=== PATIENT | female | born 1960 | race Caucasian/White ===

== ENCOUNTER 2016-06-20 14:42 | Emergency (ER) | payer MEDICAID ==
[2016-06-20 15:18] VITALS: BP 149/87; PULSE 92; RESP 20; TEMP 98; O2SAT 97
--- NOTE | 2016-06-20 15:40 | C.PDOC ---
History Of Present Illness Patient has a history of vertigo for the past 25 years. she is on Meclizine daily but for the past several days the symptoms are worse. She has a transient right sided headache this morning, now resolved. She denies associated visual disturbance or weakness in her arms or legs. She is nauseated and feels unable to eat. The dizziness is only present with movement of her head. Time Seen by Provider: 06/20/16 15:22 Chief Complaint (Nursing): Dizziness/Lightheaded History Per: Patient History/Exam Limitations: no limitations Onset/Duration Of Symptoms: Worse Since (2 days ago) Current Symptoms Are (Timing): Still Present Activity At Onset Of Symptoms: Change In Head Position Possible Causative Factor(s): Vertigo Fall Associated With With Symptoms: No Past Medical History Vital Signs: Last Vital Signs Temp 98.0 F 06/20/16 15:14 Pulse 92 H 06/20/16 15:14 Resp 20 06/20/16 15:14 BP 149/87 06/20/16 15:14 Pulse Ox 97 06/20/16 15:14 - Medical History PMH: Asthma, Chronic Kidney Disease Other PMH: Vertigo Surgical History: No Surg Hx Family History: States: Unknown Family Hx - Social History Hx Tobacco Use: No Hx Alcohol Use: No Hx Substance Use: No - Immunization History Hx Tetanus Toxoid Vaccination: Yes Hx Influenza Vaccination: No Hx Pneumococcal Vaccination: No Review Of Systems Except As Marked, All Systems Reviewed And Found Negative. Eyes: Negative for: Vision Change Neurological: Positive for: Headache, Dizziness Physical Exam - Physical Exam Appears: Well, No Acute Distress Skin: Normal Color, Warm, Dry Head: Atraumatic, Normacephalic Eye(s): bilateral: Normal Inspection, PERRL, EOMI Ear(s): Bilateral: Normal Oral Mucosa: Moist Neck: Normal ROM Lymphatic: No Adenopathy Chest: Symmetrical Cardiovascular: Rhythm Regular Respiratory: Normal Breath Sounds Gastrointestinal/Abdominal: Soft, No Tenderness Pulses: Left Carotid: Normal, Right Carotid: Normal Neurological/Psych: Oriented x3, Normal Speech, Normal Cognition, Normal Cranial Nerves, Normal Motor, Normal Sensation Gait: Steady ED Course And Treatment O2 Sat by Pulse Oximetry: 97 Pulse Ox Interpretation: Normal Progress Note: Patient treated with Zofran 4mg ODT in the ED. She states that she has had multiple ED visits for same symptoms and has had multiple CT scans in the past. She is very familiar with her illness and is requesting only medication for nausea at this time. She will return if symptoms change or worsen. Disposition Counseled Patient/Family Regarding: Diagnosis, Need For Followup, Rx Given - Disposition Referrals: Farheen Paul MD [Non-Staff] - Disposition: HOME/ ROUTINE Disposition Time: 15:42 Condition: STABLE Prescriptions: Ondansetron ODT [Zofran ODT] 1 odt PO QID PRN #20 odt PRN Reason: Nausea/Vomiting Instructions: Vertigo (ED) - Clinical Impression Clinical Impression: Vertigo
== END 2016-06-20 15:54 | disposition home or self-care (01) ==
LOC: C.ER 14:42
DX: R42 Dizziness and giddiness (principal)

== ENCOUNTER 2016-07-11 13:35 | Emergency (ER) | payer MEDICAID ==
[2016-07-11] MEDS ORDERED: Sodium Chloride 0.9% 1,000 ML IV ONE (14:08)
[2016-07-11] MEDS ORDERED: Sodium Chloride 0.9% 1,000 ML ONE (14:24)
[2016-07-11 14:54] LABS: RBC URINE 16 /hpf (0-3); URINE BACTERIA RARE (<OCC); URINE BILIRUBIN NEGATIVE (NEGATIVE); URINE BLOOD 2+ (NEGATIVE); URINE COLOR Straw (YELLOW); URINE GLUCOSE (UA) NORMAL (Normal); URINE KETONE NEGATIVE (NEGATIVE); URINE LEUKOCYTE ESTERASE NEG Leu/uL (Negative); URINE PROTEIN 1+ mg/dL (NEGATIVE); URINE UROBILINOGEN NORMAL mg/dL (0.2-1.0); WBC URINE < 1 /hpf (0-5)
--- NOTE | 2016-07-11 14:55 | C.PDOC ---
History Of Present Illness 55-year-old female, presents to the emergency department with complaints of watery, itchy eyes, runny nose, itchy scalp, generalized headache and nausea after eating dinner from a deli, two days ago. Patient states she took her allergy meds and Antivert, but symptoms persisted, resulting in her vomiting to the ED for evaluation. Denies abdominal pain, vomiting, fevers, diarrhea, chills , chest pain, back pain, dizziness, or any other associated symptoms. No other complaints at this time. Of note, patient is on stool softener daily for chronic constipation. Time Seen by Provider: 07/11/16 13:54 Chief Complaint (Nursing): Dizziness/Lightheaded History Per: Patient History/Exam Limitations: no limitations Onset/Duration Of Symptoms: Days (2) Current Symptoms Are (Timing): Still Present Past Medical History Reviewed: Historical Data, Nursing Documentation, Vital Signs Vital Signs: Last Vital Signs Temp 98.4 F 07/11/16 16:11 Pulse 88 07/11/16 16:11 Resp 18 07/11/16 16:11 BP 146/78 07/11/16 16:11 Pulse Ox 99 07/11/16 16:11 - Medical History PMH: Asthma Denies: Chronic Kidney Disease Family History: States: No Known Family Hx - Social History Hx Tobacco Use: No Hx Alcohol Use: No Hx Substance Use: No - Immunization History Hx Tetanus Toxoid Vaccination: Yes Hx Influenza Vaccination: No Hx Pneumococcal Vaccination: No Review Of Systems Except As Marked, All Systems Reviewed And Found Negative. Constitutional: Negative for: Fever, Chills Eyes: Negative for: Pain, Vision Change, Redness ENT: Positive for: Ear Discharge. Negative for: Nose Congestion, Mouth Pain, Throat Pain, Throat Swelling Cardiovascular: Negative for: Chest Pain, Palpitations Respiratory: Negative for: Cough, Shortness of Breath Gastrointestinal: Positive for: Nausea. Negative for: Vomiting, Diarrhea, Constipation Musculoskeletal: Negative for: Back Pain Neurological: Positive for: Headache. Negative for: Dizziness Physical Exam - Physical Exam Appears: Non-toxic, No Acute Distress Skin: Warm, Dry, No Rash Head: Atraumatic Eye(s): bilateral: Normal Inspection, PERRL Nose: Normal Throat: Normal Neck: Normal Cardiovascular: Rhythm Regular Respiratory: Normal Breath Sounds Gastrointestinal/Abdominal: Normal Exam Back: Normal Inspection Extremity: Normal ROM ED Course And Treatment - Laboratory Results Result Diagrams: 07/11/16 14:53 07/11/16 14:53 Lab Interpretation: No Acute Changes Interpretation Of Abnormal: Mild hypokalemia corrected with Kdur O2 Sat by Pulse Oximetry: 98 Pulse Ox Interpretation: Normal Progress Note: Patient treated with Phenergan for nausea. Reevaluation Time: 16:17 Reassessment Condition: Improved (Feels better after IM Phenergan.) Disposition Counseled Patient/Family Regarding: Studies Performed, Diagnosis, Need For Followup - Disposition Referrals: Farheen Paul MD [Non-Staff] - Disposition: HOME/ ROUTINE Disposition Time: 16:18 Condition: IMPROVED Instructions: Acute Nausea and Vomiting (ED), Hypokalemia (ED) - Clinical Impression Clinical Impression: Nausea & vomiting, Hypokalemia - Scribe Statement The provider has reviewed the documentation as recorded by the Gaurav Martinez All medical record entries made by the Foziaibzoe were at my direction and personally dictated by me. I have reviewed the chart and agree that the record accurately reflects my personal performance of the history, physical exam, medical decision making, and the department course for this patient. I have also personally directed, reviewed, and agree with the discharge instructions and disposition.
[2016-07-11 14:56] LABS: BASO # 0.1 K/uL (0.0-0.2); EOS # 0.3 K/uL (0.0-0.7); EOS % 4.8 % (0.0-4.0); HEMATOCRIT 35.6 % (34.0-47.0); LYMPH # 2.2 K/uL (1.0-4.3); LYMPH % 35.1 % (20.0-40.0); MEAN CELL VOLUME 87.1 fL (81.0-99.0); MEAN CORPUSCULAR HEMOGLOBIN 28.5 pg (27.0-31.0); MEAN CORPUSCULAR HGB CONC 32.7 g/dL (33.0-37.0); MEAN PLATELET VOLUME 9.1 fL (7.2-11.7); MONO # 0.4 K/uL (0.0-0.8); MONO % 5.9 % (0.0-10.0); NRBC % 0.1 % (0.0-2.0); RED CELL DISTRIBUTION WIDTH 12.8 % (11.5-14.5); WHITE BLOOD COUNT 6.3 K/uL (4.8-10.8)
[2016-07-11 15:06] LABS: CHLORIDE 101 mmol/L (98-107); SODIUM 139 mmol/L (132-148)
[2016-07-11 15:07] LABS: POTASSIUM 3.3 mmol/L (3.6-5.2)
[2016-07-11 15:08] LABS: GFR AFRICAN-AMERICAN > 60
[2016-07-11 15:09] LABS: ALB/GLOB RATIO 1.4 (1.0-2.1); ALKALINE PHOSPHATASE 91 U/L (38-126); ALT/SGPT 30 U/L (9-52); AST/SGOT 22 U/L (14-36); BILIRUBIN,TOTAL 0.6 mg/dL (0.2-1.3); BLOOD UREA NITROGEN 14 mg/dL (7-17); CARBON DIOXIDE 26 mmol/L (22-30); GLUCOSE,RANDOM 91 mg/dL (65-105); TOTAL PROTEIN 7.3 g/dL (6.3-8.3)
[2016-07-11 15:10] LABS: CALCIUM 8.6 mg/dl (8.6-10.4)
[2016-07-11] MEDS ORDERED: Potassium Chloride 20 mEq ER Tab PO STA (16:02)
[2016-07-11] MEDS ORDERED: Potassium Chloride 20 mEq ER Tab PO ONE (16:07)
[2016-07-11 16:12] VITALS: BP 146/78; PULSE 88; RESP 18; TEMP 98.4
[2016-07-11 16:19] VITALS: O2SAT 98
== END 2016-07-11 16:27 | disposition home or self-care (01) ==
LOC: C.ER 13:35
DX: R11.2 Nausea with vomiting, unspecified (principal); E87.6 Hypokalemia
CPT/HCPCS: 80053; 81001; 85025; 96360; 96372; 99285; J2550; J7040

== ENCOUNTER 2017-01-07 11:22 | Emergency (ER) | payer MEDICAID ==
[2017-01-07 12:13] VITALS: BP 149/85; PULSE 78; RESP 16; TEMP 98.4; O2SAT 97
[2017-01-07] MEDS ORDERED: Sodium Chloride 0.9% 1,000 ML IV ONE (12:26)
[2017-01-07] MEDS ORDERED: diaZEpam 10 mg/2 ml Inj IVP STA (12:26)
--- NOTE | 2017-01-07 12:34 | C.PDOC ---
History Of Present Illness 56 y/o female, with PMHx of vertigo "had it for 20 years", presents to ED for evaluation of dizziness which feels like vertigo that started yesterday. Notes taking Meclizine and Zofran with slight improvement. Denies fever, or other complaints. Time Seen by Provider: 01/07/17 12:07 Chief Complaint (Nursing): Dizziness/Lightheaded History Per: Patient History/Exam Limitations: no limitations Onset/Duration Of Symptoms: Days Current Symptoms Are (Timing): Still Present Past Medical History Reviewed: Historical Data, Nursing Documentation, Vital Signs Vital Signs: Last Vital Signs Temp 98.4 F 01/07/17 12:11 Pulse 78 01/07/17 12:11 Resp 16 01/07/17 12:11 BP 149/85 01/07/17 12:11 Pulse Ox 97 01/07/17 12:37 - Medical History PMH: Asthma Denies: Chronic Kidney Disease Family History: States: Unknown Family Hx - Social History Hx Tobacco Use: No Hx Alcohol Use: No Hx Substance Use: No - Immunization History Hx Tetanus Toxoid Vaccination: Yes Hx Influenza Vaccination: No Hx Pneumococcal Vaccination: No Review Of Systems Except As Marked, All Systems Reviewed And Found Negative. Constitutional: Negative for: Fever, Chills Cardiovascular: Negative for: Chest Pain, Palpitations Respiratory: Negative for: Shortness of Breath Neurological: Positive for: Dizziness. Negative for: Weakness, Numbness, Headache Physical Exam - Physical Exam Appears: Non-toxic, No Acute Distress Skin: Normal Color, Warm, Dry Head: Atraumatic, Normacephalic Eye(s): bilateral: Other (horizontal nystagmus) Oral Mucosa: Moist Neck: Supple Chest: Symmetrical Cardiovascular: Rhythm Regular, No Murmur Respiratory: Normal Breath Sounds, No Rales, No Rhonchi, No Wheezing Gastrointestinal/Abdominal: Soft, No Tenderness Extremity: Normal ROM Neurological/Psych: Oriented x3, Normal Speech ED Course And Treatment - Laboratory Results Result Diagrams: 01/07/17 13:17 01/07/17 13:17 O2 Sat by Pulse Oximetry: 97 Pulse Ox Interpretation: Normal Medical Decision Making Medical Decision Making: Blood work, UA ordered and reviewed. Pt was given IV fluids, Zofran, and Valium. given vailium in er, symptoms improved. pt asking for dc. neuro intact. steady gait. Disposition - Disposition Referrals: [facility] [Outside] [facility] [Outside] Paul Owen MD [Staff Provider] - Fernando Lloyd MD [Staff Provider] - Disposition: HOME/ ROUTINE Disposition Time: 03:00 Condition: STABLE Additional Instructions: please see specialist. return to er with worsening symptoms or concerns. Prescriptions: diaZEpam [Valium] 2 mg PO BID PRN #10 tab PRN Reason: Dizziness Instructions: Vertigo (ED) Forms: [employer] ([place] Islander) - Clinical Impression Clinical Impression: Dizziness - Scribe Statement The provider has reviewed the documentation as recorded by the Scribe Micki Gonzalez All medical record entries made by the Scribe were at my direction and personally dictated by me. I have reviewed the chart and agree that the record accurately reflects my personal performance of the history, physical exam, medical decision making, and the department course for this patient. I have also personally directed, reviewed, and agree with the discharge instructions and disposition.
[2017-01-07] MEDS ORDERED: diaZEpam 10 mg/2 ml Inj ONE ×2 (13:01)
[2017-01-07] MEDS ORDERED: Sodium Chloride 0.9% 1,000 ML ONE (13:01)
[2017-01-07 13:31] LABS: BASO % 0.5 % (0.0-2.0); EOS # 0.1 K/uL (0.0-0.7); EOS % 0.9 % (0.0-4.0); HEMATOCRIT 37.9 % (34.0-47.0); LYMPH # 1.2 K/uL (1.0-4.3); LYMPH % 16.3 % (20.0-40.0); MEAN CELL VOLUME 88.1 fL (81.0-99.0); MEAN CORPUSCULAR HEMOGLOBIN 29.5 pg (27.0-31.0); MEAN CORPUSCULAR HGB CONC 33.5 g/dL (33.0-37.0); MEAN PLATELET VOLUME 9.9 fL (7.2-11.7); MONO # 0.3 K/uL (0.0-0.8); MONO % 3.9 % (0.0-10.0); NRBC % 0.1 % (0.0-2.0); RED CELL DISTRIBUTION WIDTH 12.8 % (11.5-14.5); WHITE BLOOD COUNT 7.3 K/uL (4.8-10.8)
[2017-01-07 13:40] LABS: RBC URINE 3 /hpf (0-3); URINE BACTERIA RARE (<OCC); URINE BILIRUBIN NEGATIVE (NEGATIVE); URINE BLOOD 2+ (NEGATIVE); URINE COLOR Straw (YELLOW); URINE GLUCOSE (UA) NORMAL (Normal); URINE KETONE NEGATIVE (NEGATIVE); URINE LEUKOCYTE ESTERASE 1+ Leu/uL (Negative); URINE PROTEIN 1+ mg/dL (NEGATIVE); URINE UROBILINOGEN NORMAL mg/dL (0.2-1.0); WBC URINE 1 /hpf (0-5)
[2017-01-07 13:46] LABS: ALB/GLOB RATIO 1.6 (1.0-2.1); ALKALINE PHOSPHATASE 96 U/L (38-126); ALT/SGPT 39 U/L (9-52); AST/SGOT 24 U/L (14-36); BILIRUBIN,TOTAL 0.7 mg/dL (0.2-1.3); BLOOD UREA NITROGEN 13 mg/dL (7-17); CALCIUM 8.8 mg/dl (8.6-10.4); CARBON DIOXIDE 27 mmol/L (22-30); CHLORIDE 100 mmol/L (98-107); GFR AFRICAN-AMERICAN > 60; GLUCOSE,RANDOM 100 mg/dL (65-105); POTASSIUM 3.3 mmol/L (3.6-5.2); SODIUM 140 mmol/L (132-148); TOTAL PROTEIN 7.4 g/dL (6.3-8.3)
[2017-01-07] MEDS ORDERED: Potassium Chloride 20 mEq ER Tab PO STA (13:58)
[2017-01-07] MEDS ORDERED: Potassium Chloride 20 mEq ER Tab PO ONE (14:15)
== END 2017-01-07 15:11 | disposition home or self-care (01) ==
LOC: C.ER 11:22
DX: R42 Dizziness and giddiness (principal)
CPT/HCPCS: 80053; 81001; 84703; 85025; 85610; 85730; 96361; 96374; 96375; 99282; J2405; J3360; J7040

== ENCOUNTER 2017-06-25 14:52 | Emergency (ER) | payer MEDICAID ==
[2017-06-25 15:15] VITALS: BP 171/92; PULSE 108; TEMP 98.4; O2SAT 99
--- NOTE | 2017-06-25 16:05 | C.PDOC ---
History Of Present Illness [id number] female presents to ED with complaints of exacerbation of chronic vertigo. Patient reports vertigo is limited with routine. Patient took meclizine with no relief and today complaints of exacerbation associated with nausea today. Also patient reports asthma exacerbation that began 3 days ago. She states allergies have worsened the symptoms. Patient also complaints of sore throat and bilateral ear discomfort. Denies hearing changes, ear discharge or other physical complaints. Patient is requesting antibiotics for her throat. Patient showes prior improvement with valnium on previous ER visits. Time Seen by Provider: 06/25/17 15:45 Chief Complaint (Nursing): Dizziness/Lightheaded History Per: Patient History/Exam Limitations: no limitations Onset/Duration Of Symptoms: Hrs, Days Current Symptoms Are (Timing): Still Present Recent travel outside of the [place]: No Past Medical History Reviewed: Historical Data, Nursing Documentation, Vital Signs Vital Signs: Last Vital Signs Temp 98.4 F 06/25/17 15:13 Pulse 108 H 06/25/17 15:13 Resp 18 06/25/17 15:13 BP 171/92 H 06/25/17 15:13 Pulse Ox 99 06/25/17 16:06 - Medical History PMH: Asthma Surgical History: No Surg Hx Family History: States: Unknown Family Hx - Social History Hx Tobacco Use: No Hx Alcohol Use: No Hx Substance Use: No - Immunization History Hx Tetanus Toxoid Vaccination: Yes Hx Influenza Vaccination: Yes Hx Pneumococcal Vaccination: Yes Review Of Systems Constitutional: Negative for: Fever, Chills ENT: Positive for: Ear Pain, Throat Pain. Negative for: Ear Discharge, Throat Swelling Cardiovascular: Negative for: Chest Pain Respiratory: Positive for: Other (asthma ) Gastrointestinal: Negative for: Nausea, Vomiting, Diarrhea Skin: Negative for: Rash Neurological: Positive for: Other (Vertigo). Negative for: Weakness, Numbness Physical Exam - Physical Exam Appears: Non-toxic, No Acute Distress Skin: Warm, Dry Head: Atraumatic, Normacephalic, Other (unable to reproduce the vertigo) Eye(s): bilateral: Normal Inspection, Other (No nystagmus) Ear(s): Bilateral: Normal Oral Mucosa: Moist Throat: Erythema, No Exudate, No Drooling, Other (Swollen ) Neck: Supple Chest: Symmetrical, No Tenderness Cardiovascular: Rhythm Regular Respiratory: Normal Breath Sounds, No Decreased Breath Sounds, No Rales, No Rhonchi, Wheezing (occasional expiratory ) Gastrointestinal/Abdominal: Soft, No Tenderness, No Distention Extremity: Normal ROM Neurological/Psych: Oriented x3, Normal Speech, Normal Cognition ED Course And Treatment O2 Sat by Pulse Oximetry: 99 (RA) Pulse Ox Interpretation: Normal Medical Decision Making Medical Decision Making: Administered amoxil, valium,and PredniSONE. Disposition Counseled Patient/Family Regarding: Diagnosis, Need For Followup, Rx Given - Disposition Referrals: YOUR,PMD [Other] Disposition: HOME/ ROUTINE Disposition Time: 16:02 Condition: IMPROVED Prescriptions: Amoxicillin [Amoxil 500 mg Cap] 500 mg PO BID #14 cap diaZEpam [Valium] 5 mg PO TID PRN #15 tab PRN Reason: Muscle Spasm predniSONE [Prednisone] 60 mg PO DAILY #12 tab Instructions: Sore Throat, Adult (DC), Vertigo (a Type of Dizziness) (DC) Forms: [employer] (Turkish) - Clinical Impression Clinical Impression: Vertigo, Asthma, Pharyngitis - Scribe Statement The provider has reviewed the documentation as recorded by the Foziaibzoe Rooney All medical record entries made by the Foziaibzoe were at my direction and personally dictated by me. I have reviewed the chart and agree that the record accurately reflects my personal performance of the history, physical exam, medical decision making, and the department course for this patient. I have also personally directed, reviewed, and agree with the discharge instructions and disposition.
[2017-06-25] MEDS ORDERED: Amoxicillin-Clav 500-125 mg Tab PO ONE (16:15)
[2017-06-25 16:25] VITALS: RESP 20
== END 2017-06-25 16:24 | disposition home or self-care (01) ==
LOC: C.ER 14:52
DX: R42 Dizziness and giddiness (principal); J45.909 Unspecified asthma, uncomplicated; J02.9 Acute pharyngitis, unspecified

== ENCOUNTER 2017-10-03 19:33 | Emergency (ER) | payer MEDICAID ==
--- NOTE | 2017-10-03 22:16 | C.PDOC ---
History Of Present Illness 56 y/o F c PMHx vertigo p/w vertigo today. Patient states she was having vertigo today but she has been waiting to be seen in the ED for 3 hours and before she came to the ED, she had taken Meclizine and so now that I saw her at the bedside, she states her symptoms are completely gone and she is happy to leave. She denies any numbness, weakness, headache, vision change, vertigo, vomiting. She does note that she has had an itchy, nonpainful rash to the upper back that she has been scratching and is requesting a cream for it. Time Seen by Provider: 10/03/17 22:04 Chief Complaint (Nursing): Dizziness/Lightheaded Past Medical History Vital Signs: Last Vital Signs Temp 98.5 F 10/03/17 19:57 Pulse 93 H 10/03/17 19:57 Resp 16 10/03/17 19:57 BP 146/81 10/03/17 19:57 Pulse Ox 98 10/03/17 19:57 - Medical History PMH: Asthma Denies: Chronic Kidney Disease Family History: States: Unknown Family Hx - Social History Hx Tobacco Use: No Hx Alcohol Use: No Hx Substance Use: No - Immunization History Hx Tetanus Toxoid Vaccination: Yes Hx Influenza Vaccination: Yes Hx Pneumococcal Vaccination: Yes Review Of Systems Except As Marked, All Systems Reviewed And Found Negative. Constitutional: Negative for: Fever Cardiovascular: Negative for: Chest Pain Physical Exam - Physical Exam Additional Physical Exam Comments: Gen: NAD Head: NC/AT Eyes: PERRL. No Nystagmus. ENT: MMM Neck: Supple Chest: No tenderness CV: Regular rate Lungs: CTA b/l Abd: Soft, NT Back: No CVA tenderness Extremities: No edema Skin: Erythematous, macular rash to upper back with excoriations. No plaques, vesicles, weeping, or edema. Neuro: Alert, gait steady, FTN/HTS normal. ED Course And Treatment O2 Sat by Pulse Oximetry: 98 Medical Decision Making Medical Decision Making: Patient's chronic vertigo resolved without ED intervention. Disposition - Disposition Referrals: Nicanor Kong DO [Staff Provider] - Disposition: HOME/ ROUTINE Disposition Time: 22:17 Condition: STABLE Prescriptions: Diphenhydramine HCl/Zinc Acet [Benadryl Itch Stopping Crm] 1 appl TP BID #28.3 cream..g. Instructions: Vertigo (a Type of Dizziness) - Clinical Impression Clinical Impression: Vertigo
[2017-10-03 22:24] VITALS: BP 152/89; PULSE 79; RESP 19; TEMP 97.9; O2SAT 97
== END 2017-10-03 22:24 | disposition home or self-care (01) ==
LOC: C.ER 19:33
DX: R42 Dizziness and giddiness (principal)

== ENCOUNTER 2018-02-24 19:34 | Emergency (ER) | payer MEDICAID ==
[2018-02-24 20:25] VITALS: RESP 20; TEMP 98.2; O2SAT 99
[2018-02-24] MEDS ORDERED: Albuterol 0.083% Inhal Sol (2.5 mg/3 mL) UD ONE (20:55)
[2018-02-24] MEDS ORDERED: Albuterol-Ipratrop 3 mg / 0.5 (3 ml) UD ONE (21:20)
--- NOTE | 2018-02-24 23:13 | C.PDOC ---
History Of Present Illness Patient reports history of asthma, which worsened along with development of URI symptoms (cough, congestion) 4 days ago. States that at triage she was given a breathing treatment and that she now feels completely fine. Also complains that she scraped her left leg yesterday but did not want to seek care, asking for antibiotic ointment. Denies fever, nausea, vomiting, chest pain, abdominal pain, diarrhea. On left leg denies pain, purulent drainage, or swelling. Time Seen by Provider: 02/24/18 22:01 Chief Complaint (Nursing): Cough, Cold, Congestion Past Medical History Reviewed: Historical Data, Nursing Documentation, Vital Signs Vital Signs: Last Vital Signs Temp 98.2 F 02/24/18 20:16 Pulse 94 H 02/24/18 20:16 Resp 20 02/24/18 20:16 BP 131/73 02/24/18 20:16 Pulse Ox 99 02/24/18 20:16 - Medical History PMH: Asthma Denies: Chronic Kidney Disease Family History: States: Unknown Family Hx - Social History Hx Tobacco Use: No Hx Alcohol Use: No Hx Substance Use: No - Immunization History Hx Tetanus Toxoid Vaccination: Yes Hx Influenza Vaccination: Yes Hx Pneumococcal Vaccination: Yes Review Of Systems Except As Marked, All Systems Reviewed And Found Negative. Constitutional: Negative for: Fever ENT: Positive for: Nose Congestion Cardiovascular: Negative for: Chest Pain Respiratory: Positive for: Cough, Shortness of Breath, Wheezing Gastrointestinal: Negative for: Nausea, Vomiting, Abdominal Pain, Diarrhea Genitourinary: Negative for: Dysuria Skin: Positive for: Other (Laceration). Negative for: Rash Neurological: Negative for: Altered Mental Status Physical Exam - Physical Exam Appears: Well, Non-toxic, No Acute Distress Skin: Normal Color, Warm, Dry, Other (healing abrasion to L puente, about 2cm x 1cm, already scabbed over. No surrounding signs of cellulitis. No purulent disc hargem) Oral Mucosa: Moist Cardiovascular: Rhythm Regular Respiratory: Normal Breath Sounds, No Wheezing (has already had duoneb by the time of MD exam) Gastrointestinal/Abdominal: Normal Exam Extremity: Normal ROM, No Deformity, No Swelling Neurological/Psych: Oriented x3, Normal Speech ED Course And Treatment O2 Sat by Pulse Oximetry: 99 Medical Decision Making Medical Decision Making: At the time of MD exam, patient has already had a breathing treatment. States that she feels completely fine and wants to go home. Asking for abx ointment for her leg. Offered bacitracin, patient states "I want something stronger", however explained that there is no stronger abx ointment. Patient states "then I can just buy it at the pharmacy" and requests to go home. Disposition - Disposition Disposition: HOME/ ROUTINE Disposition Time: 23:12 Condition: STABLE Additional Instructions: ABBY LINDER, thank you for letting us take care of you today. Your provider was Lydia Montiel MD and you were treated for ASTHMA/SOB/COUGH/LT LEG LACERATION. The emergency medical care you received today was directed at your acute symptoms. If you were prescribed any medication, please fill it and take as directed. It may take several days for your symptoms to resolve. Return to the Emergency Department if your symptoms worsen, do not improve, or if you have any other problems. Please contact your doctor or call one of the physicians/clinics you have been referred to that are listed on the Patient Visit Information form that is included in your discharge packet. Bring any paperwork you were given at discharge with you along with any medications you are taking to your follow up visit. Our treatment cannot replace ongoing medical care by a primary care provider outside of the emergency department. Thank you for allowing the [facility] team to be part of your care today. If you had an X-Ray or CT scan: A Radiologist will review the ED reading if any change in treatment is needed we will contact you. If you had a blood, urine, or wound culture: It will take several days for the results, if any change in treatment is needed we will contact you. If you had an STI test: It will take 48 hours for the results. Please call after 1 week if you have not heard back. Instructions: Asthma, Adult (DC), Wound Care (DC), Upper Respiratory Infection (ED) Forms: [employer] (Yi) - Clinical Impression Clinical Impression: Asthma exacerbation, Laceration of left leg
[2018-02-24 23:35] VITALS: BP 156/85; PULSE 89
== END 2018-02-24 23:35 | disposition home or self-care (01) ==
LOC: C.ER 19:34
DX: J45.901 Unspecified asthma with (acute) exacerbation (principal); S81.812A Laceration without foreign body, left lower leg, initial encounter; X58.XXXA Exposure to other specified factors, initial encounter

== ENCOUNTER 2018-03-13 21:37 | Emergency (ER) | payer MEDICAID ==
[2018-03-13 21:42] VITALS: TEMP 97.7
[2018-03-13] MEDS ORDERED: Albuterol-Ipratrop 3 mg / 0.5 (3 ml) UD INH STA (21:54)
[2018-03-13] MEDS ORDERED: Albuterol-Ipratrop 3 mg / 0.5 (3 ml) UD ONE (22:07)
--- NOTE | 2018-03-13 22:18 | C.PDOC ---
History Of Present Illness 57 year old female presents to the ER complaining of her typical vertigo and dry nonproductive cough for the last few hours. Patient has had many presentations for the same. She reports taking her theophylline. albuterol puffer, and meclizine 15mg HAND [employer] EX[employer]INER. Patient no longer complaining of vertigo on arrival. Time Seen by Provider: 03/13/18 21:50 Chief Complaint (Nursing): Dizziness/Lightheaded History Per: Patient History/Exam Limitations: no limitations Onset/Duration Of Symptoms: Hrs Current Symptoms Are (Timing): Still Present Seizure Or Post-ictal Symptoms: None Possible Causative Factor(s): Vertigo Fall Associated With With Symptoms: No - Symptoms Of CVA Associated Symptoms: denies: Impaired Speech, Seizure Activity, New Vision Deficit(Left), New Vision Deficit(Right), Decreased Ability To Walk, New Confusion Recent Head Trauma: No Past Medical History Reviewed: Historical Data, Nursing Documentation, Vital Signs Vital Signs: Last Vital Signs Temp 97.7 F 03/13/18 21:40 Pulse 115 H 03/13/18 21:40 Resp 18 03/13/18 21:40 BP 147/86 03/13/18 21:40 Pulse Ox 100 03/13/18 21:40 - Medical History PMH: Asthma Denies: Chronic Kidney Disease Family History: States: Unknown Family Hx - Social History Hx Tobacco Use: No Hx Alcohol Use: No Hx Substance Use: No - Immunization History Hx Tetanus Toxoid Vaccination: Yes Hx Influenza Vaccination: Yes Hx Pneumococcal Vaccination: Yes Review Of Systems Constitutional: Negative for: Fever, Chills Cardiovascular: Negative for: Chest Pain, Palpitations Respiratory: Positive for: Cough. Negative for: Shortness of Breath, Sputum Gastrointestinal: Negative for: Nausea, Vomiting Neurological: Positive for: Other (Vertigo) Physical Exam - Physical Exam Appears: Non-toxic, Other (Morbidly obese) Skin: Normal Color, Warm, Dry Head: Atraumatic, Normacephalic Eye(s): bilateral: Normal Inspection, PERRL, EOMI Oral Mucosa: Moist Throat: Normal, No Erythema, No Exudate Neck: Normal, Supple Chest: Symmetrical, No Tenderness Cardiovascular: Rhythm Regular Respiratory: Normal Breath Sounds, No Rales, No Rhonchi, No Wheezing, Other (Dry nonproductive cough) Gastrointestinal/Abdominal: Soft, No Tenderness Neurological/Psych: Oriented x3, Normal Speech ED Course And Treatment O2 Sat by Pulse Oximetry: 100 (Room air) Pulse Ox Interpretation: Normal Reevaluation Time: 22:17 Reassessment Condition: Improved Medical Decision Making Medical Decision Making: anxiety, vertigo, cough variant of asthma vs viral syndrome Disposition Doctor Will See Patient In The: Office Counseled Patient/Family Regarding: Studies Performed, Diagnosis - Disposition Referrals: Nicanor Kong DO [Staff Provider] - Disposition: HOME/ ROUTINE Disposition Time: 22:18 Condition: GOOD Additional Instructions: continue puffer for asthma symptoms continue Dayquil/Nyquil (or equivalent) for dry cough consistent w viral syndrome Continue Meclizine 25 mg every 6 hours as needed for your vertigo symptoms. Instructions: Vertigo (a Type of Dizziness) (DC), Cough, Adult (DC) Forms: [employer] ([place]ian) - Clinical Impression Clinical Impression: Dizziness, Cough - Scribe Statement The provider has reviewed the documentation as recorded by the Scribe Bhavik Gallardo All medical record entries made by the Scribe were at my direction and personally dictated by me. I have reviewed the chart and agree that the record accurately reflects my personal performance of the history, physical exam, medical decision making, and the department course for this patient. I have also personally directed, reviewed, and agree with the discharge instructions and disposition.
[2018-03-13 22:22] VITALS: BP 149/83; PULSE 95; RESP 16
[2018-03-13 22:57] VITALS: O2SAT 100
== END 2018-03-13 22:30 | disposition home or self-care (01) ==
LOC: C.ER 21:37
DX: R42 Dizziness and giddiness (principal); R05 Cough